=== PATIENT | female | born 1950 | race Caucasian/White ===

== ENCOUNTER → 2017-03-16 | Day surgery (SDC) | payer MEDICARE ==
[~2017-03-16] VITALS: Ht 160 cm; Wt 91.0 kg
[~2017-03-16] MED LIST: 0.9% Sodium Chloride 1,000 ML IV PRN; ESTR2TAB5 PO; LISI-567 PO; METF-496 PO; OXYC-176 PO; SMV40T PO; Sodium Chloride LOK Flush 10 mL Syringe IV PRN; VIS25 PO; [UNRECOGNIZED DRUG - CODE] IJ; fentaNYL-PF 50 mCg/mL 2 mL Inj IVPUSH PRN
[2017-03-16 15:04] VITALS: BP 156/86; PULSE 68; RESP 16; O2SAT 98
[2017-03-16 16:10] VITALS: BP 146/65; PULSE 71; RESP 10; O2SAT 93
[2017-03-16 16:19] VITALS: BP 154/74; PULSE 69; RESP 12; O2SAT 93
[2017-03-16 16:21] VITALS: BP 129/75; PULSE 75; RESP 14; O2SAT 98
--- NOTE | 2017-03-16 19:31 | ENDO ---
[address] [address] ENDOSCOPY PROCEDURE PATIENT: RANGEL GONCALVES : 1950 MR#: [id number] ADMIT: 03/16/2017 JOB ID: [id number] DATE OF SERVICE: 03/16/2017 TYPE OF OPERATION: Esophagogastroduodenoscopy, biopsy. Colonoscopy, biopsy. PREOPERATIVE DIAGNOSIS(ES): Gastroesophageal reflux disease and diarrhea. POSTOPERATIVE DIAGNOSES: 1. Normal upper endoscopy, status post biopsy. 2. Mild sigmoid diverticulosis. ANESTHESIA: Fentanyl 150 mcg and Versed 8 mg IV administered. COMPLICATIONS: None. BLOOD LOSS: Minimal. DESCRIPTION OF PROCEDURE: After risks and benefits explained to the patient, informed consent was obtained. After anesthesia administered, upper endoscope was then inserted in mouth, intubated into the esophagus, stomach, second portion of duodenum. Mucosa carefully examined. After procedure was done, the scope withdrawn, procedure terminated. Colonoscope was then inserted from the rectum to the terminal ileum. Mucosa was carefully examined. Prep of the patient was excellent. After procedure was done, the scope was withdrawn, procedure terminated. FINDINGS: Upon inspection of the esophagus, esophagus was normal without masses, ulcers, or lesions. Z-line located at 35 cm from incisors. Upon entering the stomach, stomach was also normal without masses, ulcers, or lesions. Retroflexion was normal. Duodenal bulb, first and second portion normal. Biopsies taken at the duodenum, antrum, body, and distal esophagus. Upon inspection of the anus, no masses, hemorrhoids, ulcers, fissures that were seen throughout the entire examination. There was mild sigmoid diverticulosis. Biopsies taken of the terminal ileum and random colon. Retroflexion normal. IMPRESSIONS: Mild sigmoid diverticulosis. Normal upper endoscopy, status post biopsy. RECOMMENDATIONS: Await pathology results. Follow up in GI clinic as needed.
--- NOTE | 2017-03-18 11:45 | PATH ---
SURGICAL PATHOLOGY Attending Physician:Les Guzman MD CASE STATUS: Signed Out PATIENT NAME: RANGEL GONCALVES PID: [id number] : 1950 DATE COLLECTED:03/16/2017 00:00 SPECIMEN: 1: Duodenum, Biopsy 2: Stomach, Antrum, Biopsy 3: Gastric, Biopsy 4: Esophagus, Biopsy 5: Ileum, Biopsy 6: Colon, Biopsy CLINICAL HISTORY: GERD, DIARRHEA 1). DUODENUM BIOPSY 2). ANTRUM BIOPSY 3). GASTRIC BODY BIOPSY, RULE OUT H.PYLORI 4). DISTAL ESOPHAGUS BIOPSY 5). TERMINAL ILEUM BIOPSY 6). RANDOM COLON BIOPSY FINAL DIAGNOSIS: 1. Duodenum, Biopsy: Small bowel mucosa with no diagnostic abnormality. Negative for inflammation, histologic evidence of celiac disease, granulomas, dysplasia and malignancy. 2. Stomach, Antrum, Biopsy: Antral mucosa with mild chronic active gastritis. Negative for intestinal metaplasia, dysplasia and malignancy. Immunohistochemistry for Helicobacter organisms pending with the result to be reported in an addendum. 3. Stomach, Body, Biopsy: Body-type mucosa with mild chronic gastritis. Negative for intestinal metaplasia, dysplasia, and malignancy. Immunohistochemistry for Helicobacter organisms pending with the result to be reported in an addendum. 4. Distal Esophagus, Biopsy: Squamocolumnar junctional mucosa with mild chronic esophagitis. Mild squamous intraepithelial eosinophilia, up to 8/HPF, insufficient for a diagnosis of eosinophilic esophagitis. Negative for Mace's esophagus, dysplasia and malignancy. 5. Terminal Ileum, Biopsy: Normal small bowel mucosa. Negative for inflammation, granulomas, dysplasia and malignancy. 6. Random Colon, Biopsy: Collagenous colitis. ICD10: K29.7 K20.0 GROSS DESCRIPTION: The specimen is received in six formalin filled containers labeled with the patient's name. 1). The specimen is labeled "duodenum" and consists of 2 portions of tissue which aggregate to 0.2 x 0.2 x 0.2 CM. The specimen is entirely submitted in cassette 1A. 2). The specimen is labeled "antrum" and consists of a 0.2 x 0.2 x 0.2 CM portion of tissue which is entirely submitted in cassette 2A. 3). The specimen is labeled "gastric body" and consists of 2 portions of tissue which aggregate to 0.2 x 0.2 x 0.2 CM. The specimen is entirely submitted in cassette 3A. 4). The specimen is labeled "distal esophagus" and consists of a extremely tiny less than 0.1 CM portion of tissue which is entirely submitted in cassette 4A. 5). The specimen is labeled " TI " and consists of 2 portions of tissue which aggregate to 0.3 x 0.2 x 0.2 CM. The specimen is entirely submitted in cassette 5A. 6). The specimen is labeled "random colon" and consists of 4 portions of tissue which aggregate to 0.4 x 0.4 x 0.2 CM. The specimen is entirely submitted in cassette 6A. 03/17/2017[place] ICD-9 CODES: CPT CODES: 1: 96157 2: 20616, 88111 3: 09556, 95824 4: 69419 5: 28684 6: 83240 PROCEDURE/ADDENDA: Addendum SPI Addendum Diagnosis 2. Stomach, Antrum, Biopsy: Immunohistochemistry negative for Helicobacter organisms. 3. Stomach, Body, Biopsy: Immunohistochemistry negative for Helicobacter organisms. Addendum Comment The purpose of this addendum is to report the immunohistochemical stains performed to evaluate for the presence of Helicobacter organisms in the biopsies from the antrum (part 2) and body (part 3). The immunohistochemical stains performed on both biopsies are negative for organisms. The positive control reacted appropriately. Electronically Signed Out Cosme Mclaughlin MD, PhD Electronically Signed Out Cosme Mclaughlin MD, PhD [facility], [place] [address] Technical component performed at [facility], [facility] [address], [place], [address]
== END | disposition home or self-care (01) ==
LOC: END 00:51
PROVIDERS: ATTEND Internal Medicine Gastroenterology
DX: R19.7 Diarrhea, unspecified (principal); K52.831 Collagenous colitis; K57.30 Diverticulosis of large intestine without perforation or abscess without bleeding; K29.50 Unspecified chronic gastritis without bleeding; K20.9 Esophagitis, unspecified; K21.9 Gastro-esophageal reflux disease without esophagitis; E11.9 Type 2 diabetes mellitus without complications; I10 Essential (primary) hypertension; E78.5 Hyperlipidemia, unspecified; I25.10 Atherosclerotic heart disease of native coronary artery without angina pectoris
CPT/HCPCS: 43239; 45380; 99153; G0500; J2250; J3010; J7030